=== PATIENT | female | born 1970 | race Caucasian/White ===

== ENCOUNTER 2017-06-10 22:09 | Emergency (ER) | payer BC ==
[2017-06-10 22:41] VITALS: BP 114/80
[2017-06-10] MEDS ORDERED: Hyoscyamine 0.125 MG Tab.SL SL ONE (23:25)
[2017-06-10] MEDS ORDERED: Dicyclomine 10 MG Cap PO ONE (23:26)
[2017-06-10] MEDS ORDERED: Aluminum Hydroxide/Magnesium Hydroxide/Simethicone Susp 30 ML Cup PO ONE (23:26)
--- NOTE | 2017-06-10 23:35 | EDM.PDOC ---
ED HPI GENERAL MEDICAL PROBLEM - General Chief Complaint: Abdominal Pain Stated Complaint: ABDOMINAL PAIN Time Seen by Provider: 06/10/17 23:18 Source of Information: Reports: Patient, Family (spouse) History Limitations: Reports: No Limitations - History of Present Illness INITIAL COMMENTS - FREE TEXT/NARRATIVE: 46-year-old female presents the ED with diffuse epigastric pressure discomfort radiates up into her lower chest. Does not really radiate through to her back. Perhaps a little bit under each costal margin. She does get relief with burping belching and bowel movement. Is to chronic constipation and uses Linzness daily as well as MiraLAX every other day to keep her bowels regular. She's had diarrhea tonight which is helping relieve some of the abdominal discomfort. She usually uses sucralfate for relief but it did not help today. She did have pizza which she knows is not good for her with celiac disease. It seemed to set things off within 2 hours of eating it. She's been struggling with pain about 2 hours after eating the pizza and no position is comfortable. Onset: Today Onset Date: 06/10/17 Onset Time: 18:00 Duration: Hour(s): Location: Reports: Abdomen (Peter the stomach radiating slightly up into her lower chest.) Quality: Reports: Ache, Pressure Severity: Moderate Improves with: Reports: Other (Mild improvement with burping belching and with bowel movement.) Worsens with: Reports: Other Context: Denies: Activity (Lying down.), Exercise, Lifting, Sick Contact, Trauma , Other Associated Symptoms: Denies: No Other Symptoms, Confusion, Chest Pain, Cough, cough w sputum, Diaphoresis, Fever/Chills, Headaches, Loss of Appetite, Malaise , Nausea/Vomiting, Rash, Seizure, Shortness of Breath, Syncope, Weakness Treatments PIN STICKER: Reports: Other (see below) (She has taken some sucralfate with no relief.) Upper Abdomen Pain Score (Numeric/FACES): 10 - Related Data Allergies Allergy/AdvReac Type Severity Reaction Status Date / Time levofloxacin [From Levaquin] Allergy Joint Pain Verified 02/05/16 11:05 Penicillins Allergy Rash Verified 02/05/16 11:05 Home Meds: Home Meds Albuterol [Ventolin HFA] 2 puff INH BID PRN 10/25/13 [History] Metoprolol Tartrate 50 mg PO BEDTIME 10/25/13 [History] Omeprazole [Prilosec] 40 mg PO BID 10/25/13 [History] Aspirin [Ecotrin] 81 mg PO BEDTIME 04/24/14 [History] Desog-E.Estradiol/E.Estradiol [Desogestr-Eth Estrad Eth Estra] 1 tab PO DAILY [History] Metoclopramide [Reglan] 10 mg PO Q6H PRN #20 tablet 02/07/16 [Rx] Linaclotide [Linzess] 290 mg PO DAILY 02/13/16 [History] Polyethylene Glycol 3350 [Miralax] 17 gm PO QID PRN #60 powd.pack 02/13/16 [Rx] Sucralfate [Carafate] 1 gram PO ASDIRECTED 02/13/16 [History] Past Medical History HEENT History: Reports: Allergic Rhinitis Cardiovascular History: Reports: Other (See Below) Other Cardiovascular History: mitral valve regurgitation- see pelt shearer every 6 months Respiratory History: Reports: Asthma Gastrointestinal History: Reports: Celiac Disease, Chronic Constipation, GERD Neurological History: Reports: Migraines Psychiatric History: Reports: Panic Attack - Past Surgical History HEENT Surgical History: Reports: Other (See Below) GI Surgical History: Reports: Colonoscopy, EGD, Esophageal Dilatation Social & Family History - Family History Family Medical History: Noncontributory - Tobacco Use Smoking Status *Q: Never Smoker Years of Tobacco use: 10 Used Tobacco, but Quit: Yes Month Tobacco Last Used: years ago Second Hand Smoke Exposure: No - Caffeine Use Caffeine Use: Reports: Coffee, Soda, Tea Other Caffeine Use: occasional coffee - Alcohol Use Days Per Week of Alcohol Use: 0 Number of Drinks Per Day: 0 Total Drinks Per Week: 0 - Recreational Drug Use Recreational Drug Use: No Drug Use in Last 12 Months: No - Living Situation & Occupation Living situation: Reports: , with Family ED ROS GENERAL - Review of Systems Review Of Systems: See Below Constitutional: Reports: No Symptoms HEENT: Reports: No Symptoms Respiratory: Reports: No Symptoms Cardiovascular: Reports: No Symptoms Endocrine: Reports: No Symptoms GI/Abdominal: Reports: Abdominal Pain (See history of present illness), Constipation, Other (Chronic constipation issues. Confirm celiac disease problems.) : Reports: No Symptoms Musculoskeletal: Reports: No Symptoms Skin: Reports: No Symptoms Neurological: Reports: No Symptoms Psychiatric: Reports: No Symptoms Hematologic/Lymphatic: Reports: No Symptoms Immunologic: Reports: No Symptoms ED EXAM, GI/ABD - Physical Exam Exam: See Below Exam Limited By: No Limitations General Appearance: Alert, Mild Distress (Appears to be uncomfortable.) Eyes: Bilateral: Normal Appearance Throat/Mouth: Normal Inspection, Normal Lips, Normal Teeth Head: Atraumatic, Normocephalic Neck: Normal Inspection, Supple, Non-Tender, Full Range of Motion. No: Lymphadenopathy (L), Lymphadenopathy (R) Respiratory/Chest: Lungs Clear, Normal Breath Sounds, Chest Non-Tender ( Tachypnea at 20/m.), Respiratory Distress Cardiovascular: Normal Peripheral Pulses, Regular Rate, Rhythm, No Edema, No Gallop, No Murmur, No Rub GI/Abdominal Exam: Soft, Tender (Tenderness only in the epigastrium. Again I'm not able to elicit a positive Garner sign.), Abnormal Bowel Sounds (Hyperactive high-pitched bile sounds with fluid traversing bowel.) Back Exam: Normal Inspection, Full Range of Motion. No: CVA Tenderness (L), CVA Tenderness (R) Extremities: Normal Inspection, Normal Range of Motion, Non-Tender, No Pedal Edema Neurological: Alert, Oriented, CN II-XII Intact, Normal Cognition, Normal Gait Psychiatric: Normal Affect, Normal Mood Skin Exam: Warm, Dry, Intact, Normal Color, No Rash Course - Vital Signs Last Recorded V/S: Last Vital Signs Temp 36.4 C 06/10/17 22:38 Pulse 82 06/10/17 22:38 Resp 20 06/10/17 22:38 BP 114/80 06/10/17 22:38 Pulse Ox 98 06/10/17 22:38 - Orders/Labs/Meds Orders: Active Orders 24 hr Category Date Time Status Abdomen 1V Flat [CR] Stat Exams 06/10/17 23:27 Taken Labs: Laboratory Tests 06/10/17 Range/Units 22:50 Urine Color Yellow (Yellow) Urine Appearance Clear (Clear) Urine pH 6.5 (5.0-8.0) Ur Specific [place] 1.020 (1.005-1.030) Urine Protein Negative (Negative) Urine Glucose (UA) Negative (Negative) Urine Ketones Negative (Negative) Urine Occult Blood 1+ H (Negative) Urine Nitrite Negative (Negative) Urine Bilirubin Negative (Negative) Urine Urobilinogen 0.2 (0.2-1.0) Ur Leukocyte Esterase 1+ H (Negative) Urine RBC 5-10 H (0-5) /hpf Urine WBC 5-10 H (0-5) /hpf Ur Epithelial Cells 10-20 H (0-5) /hpf Urine Bacteria Few (FEW) /hpf Urine Mucus Not seen (FEW) /hpf Meds: Medications Discontinued Medications Generic Name Dose Route Start Last Admin Trade Name Elsa PRN Reason Stop Dose Admin Al Hydroxide/Mg Hydroxide 30 ml 06/10/17 23:26 06/10/17 23:42 Mag-Al Plus PO 06/10/17 23:27 30 ml ONETIME ONE Administration Dicyclomine HCl 20 mg 06/10/17 23:26 06/10/17 23:41 Bentyl PO 06/10/17 23:27 20 mg ONETIME ONE Administration Hydromorphone HCl 1 mg 06/11/17 00:05 Dilaudid IM 06/11/17 00:06 ONETIME ONE Hyoscyamine 0.125 mg 06/10/17 23:25 06/10/17 23:43 Hyomax-Sl SL 06/10/17 23:26 0.125 mg ONETIME ONE Administration Promethazine HCl 12.5 mg 06/11/17 00:05 Phenergan IM 06/11/17 00:06 ONETIME ONE - Radiology Interpretation Free Text/Narrative:: 46-year-old female presents the ED with diffuse epigastric pains with slight radiation into the lower retrosternal chest. Occasionally into her mid back. Occasionally along both costal margins. It is usually relieved by burping belching and bowel movement. Patient has a chronic constipation issue and is confirmed to be celiac disease positive. She had pizza earlier today and she believes this set things off about 2 hours later. She states usually sucralfate helps and she took this at home without any relief. He states it's constant uncomfortable feeling in the pit of her stomach. She's had one loose prominence and skated into the ED and this has relieved some of the discomfort. Clinically there is no evidence of heart related illness. She has high-pitched bowel sounds with high fluids traversing the bowel in the upper abdomen. Pain is localized to the epigastrium. I will have one view of the abdomen done. We'll give her Maalox 30 mils by mouth with Levsin 0.125 mg sublingual and Bentyl 20 mg by mouth to see if we can alleviate discomfort. My suspicion would be more hiatal hernia discomfort but she described a strong burning pain. This could mean that she has inflammation of her lower esophagus. She does not take ascitic fluid such as tomato juice or orange juice because it makes it worse. Pizza sauce itself could've irritated the lower food pipe. Patient declined a GI cocktail as she feels the numbness that it causes in her throat makes her panicky. Of note it has worked well in the past to relieve her pain. - Re-Assessments/Exams Free Text/Narrative Re-Assessment/Exam: 06/11/17 00:06 KUB completed. It reveals a large amount of gas throughout the entire colon without any signs of stool. Expresses that perhaps 20% reduction in pain and discomfort but she believes it's more from passing flatus than any medications that we have given. I think she does clinically have a hiatal hernia that is causing problems but it could be intestinal colic causing the burning discomfort as well. I'm going to give her an IM injection of Dilaudid 1 mg with Phenergan 12.5 mg IM to ensure that she gets a good night's rest and sleep. I anticipate this will relieve the pain completely. It will also allow her to pass the air out of recorded during sleep. Departure - Departure Time of Disposition: 00:16 Disposition: Home, Self-Care 01 Condition: Fair Clinical Impression: Epigastric abdominal pain, Celiac disease/sprue - Discharge Information Instructions: Abdominal Pain, Adult, [id number], Celiac Disease Referrals: Uzma Gama PA-C [Primary Care Provider] - Forms: ED Department Discharge Additional Instructions: Evaluation the emergency room tonight in regards to persistent epigastric lower retrosternal chest pressure discomfort since eating pizza earlier today. Pressure and burning discomfort simply will not wanda with usual treatments at home. Similarly treatments here with Maalox Levsin under the tongue and Bentyl orally did not really relieve the discomfort. An x-ray of the abdomen shows a large amount of air throughout the entire colon without any stool obstruction. Do not identify for sure a hiatal hernia on x-ray of the abdomen. History and physical examination is strongly suggestive of hiatal hernia. You're therefore given an intramuscular injection of Dilaudid and Phenergan to relieve pain and nausea. This will divide sedation and pain relief overnight. If not completely better in 8-12 hours return to the ED. - My Orders Last 24 Hours: My Active Orders 06/10/17 23:27 Abdomen 1V Flat [CR] Stat - Assessment/Plan Last 24 Hours: My Active Orders 06/10/17 23:27 Abdomen 1V Flat [CR] Stat
[2017-06-11] MEDS ORDERED: HYDROmorphone 1 MG/ML Syringe IM ONE (00:05)
[2017-06-11] MEDS ORDERED: Promethazine 25 MG/ML SDV IM ONE (00:05)
--- NOTE | 2017-06-11 16:55 | CR ---
Abdomen: Supine view of the abdomen was obtained. Comparison: Prior abdominal x-ray of 02/07/16. Gas is noted throughout a nondilated colon. This is felt to be incidental. No abnormal calcifications or soft tissue abnormality is seen. Bony structures are unremarkable. Impression: 1. Incidental finding as noted above. Diagnostic code #2
== END 2017-06-11 00:20 | disposition home or self-care (01) ==
LOC: JD.ED 22:09
DX: K90.0 Celiac disease (principal); K21.9 Gastro-esophageal reflux disease without esophagitis; Z88.0 Allergy status to penicillin; Z88.1 Allergy status to other antibiotic agents; Z79.82 Long term (current) use of aspirin; Z87.891 Personal history of nicotine dependence
CPT/HCPCS: 74018; 81001; 96372; 99284; A9270; J1170; J2550; 99283

== ENCOUNTER 2017-06-18 09:18 | Emergency (ER) | payer BC ==
[2017-06-18 09:35] VITALS: BP 133/60
[2017-06-18] MEDS ORDERED: Sodium Chloride 0.9% 10 ML Syringe FLUSH PRN ×2 (09:58→16:15)
[2017-06-18] MEDS ORDERED: Ketorolac 30 MG/ML SDV IVPUSH SCH (10:00)
[2017-06-18] MEDS ORDERED: HYDROmorphone 0.5 MG/0.5 ML Syringe IVPUSH ONE ×2 (10:00→11:44)
[2017-06-18] MEDS ORDERED: Sodium Chloride 0.9% 1,000 ML IV SCH ×2 (10:00→12:30)
--- NOTE | 2017-06-18 10:04 | EDM.PDOC ---
ED HPI GENERAL MEDICAL PROBLEM - General Chief Complaint: Abdominal Pain Stated Complaint: BACK AND ABDOMINAL PAIN Time Seen by Provider: 06/18/17 09:58 Source of Information: Reports: Patient, RN Notes Reviewed - History of Present Illness INITIAL COMMENTS - FREE TEXT/NARRATIVE: 46 show female has been having difficulty with abdominal pain for more than a week. She did have an ultrasound of her gallbladder a few days ago and was found to have sludge. She is scheduled for a HIDA scan in about 2 days. She was feeling a little better this morning, did eat a small bolus cereal and then also had some chips and dip that she was preparing for [employer] this afternoon. After eating that she became very sick with nausea, abdominal pain cramps. So has been having some diarrhea. No fever. Chest pain or difficulty breathing. Does have history of celiac disease but states this feels much different. The pain is right upper quadrant with radiation to her back. Epigastric Pain Score (Numeric/FACES): 10 Back Pain Score (Numeric/FACES): 10 - Related Data Allergies Allergy/AdvReac Type Severity Reaction Status Date / Time levofloxacin [From Levaquin] Allergy Joint Pain Verified 06/18/17 09:35 Penicillins Allergy Rash Verified 06/18/17 09:35 Home Meds: Home Meds Albuterol [Ventolin HFA] 2 puff INH BID PRN 10/25/13 [History] Metoprolol Tartrate 50 mg PO BEDTIME 10/25/13 [History] Omeprazole [Prilosec] 40 mg PO BID 10/25/13 [History] Aspirin [Ecotrin] 81 mg PO BEDTIME 04/24/14 [History] Desog-E.Estradiol/E.Estradiol [Desogestr-Eth Estrad Eth Estra] 1 tab PO DAILY [History] Linaclotide [Linzess] 290 mg PO DAILY 02/13/16 [History] Polyethylene Glycol 3350 [Miralax] 17 gm PO QID PRN #60 powd.pack 02/13/16 [Rx] Sucralfate [Carafate] 1 gram PO ASDIRECTED 02/13/16 [History] Past Medical History HEENT History: Reports: Allergic Rhinitis Cardiovascular History: Reports: Other (See Below) Other Cardiovascular History: mitral valve regurgitation- see striker off every 6 months Respiratory History: Reports: Asthma, Bronchitis, Recurrent Gastrointestinal History: Reports: Celiac Disease, Chronic Constipation, GERD 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 Hematologic History: Reports: Anemia, Iron Deficiency, Other (See Below) Other Hematologic History: iron transfusions. 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 GI Surgical History: Reports: Colonoscopy, EGD, Esophageal Dilatation Social & Family History - Family History Family Medical History: Noncontributory - Tobacco Use Smoking Status *Q: Never Smoker Years of Tobacco use: 10 Used Tobacco, but Quit: Yes Month Tobacco Last Used: years ago Second Hand Smoke Exposure: No - Caffeine Use Caffeine Use: Reports: Tea Other Caffeine Use: occasional coffee - Alcohol Use Days Per Week of Alcohol Use: 0 Number of Drinks Per Day: 0 Total Drinks Per Week: 0 - Recreational Drug Use Recreational Drug Use: No Drug Use in Last 12 Months: No - Living Situation & Occupation Living situation: Reports: , with Family ED ROS GENERAL - Review of Systems Review Of Systems: See Below Constitutional: Reports: Chills. Denies: Fever, Diaphoresis HEENT: Denies: Throat Pain Respiratory: Denies: Shortness of Breath, Pleuritic Chest Pain, Cough Cardiovascular: Denies: Chest Pain GI/Abdominal: Reports: Abdominal Pain, Diarrhea, Nausea (Right upper quadrant with radiation to her back). Denies: Vomiting : Reports: No Symptoms Musculoskeletal: Reports: Back Pain Skin: Reports: No Symptoms Neurological: Reports: No Symptoms ED EXAM, GI/ABD - Physical Exam Exam: See Below General Appearance: Alert, Moderate Distress Eyes: Bilateral: Normal Appearance Throat/Mouth: Normal Inspection, Normal Oropharynx Head: No: Facial Swelling Neck: Supple, Full Range of Motion Respiratory/Chest: No Respiratory Distress, Lungs Clear, Normal Breath Sounds Cardiovascular: Regular Rate, Rhythm GI/Abdominal Exam: Soft, Tender (Moderate tenderness upper mid abdomen and right upper quadrant), Other (Lower abdomen nontender). No: Guarding, Rebound Back Exam: No: CVA Tenderness (L), CVA Tenderness (R) Extremities: Normal Inspection, Normal Range of Motion. No: Pedal Edema, Leg Pain Neurological: Alert, Oriented, No Motor/Sensory Deficits Course - Vital Signs Last Recorded V/S: Last Vital Signs Temp 97.6 F 06/18/17 09:30 Pulse 86 06/18/17 09:30 Resp 18 06/18/17 09:30 BP 133/60 06/18/17 09:30 Pulse Ox 99 06/18/17 09:30 - Orders/Labs/Meds Orders: Active Orders 24 hr Category Date Time Status Peripheral IV Care [RC] . DIRECTED Care 06/18/17 09:59 Active Abdomen Ltd [US] Stat Exams 06/18/17 12:12 Taken Abdomen Pelvis w Cont [CT] Stat Exams 06/18/17 15:53 Taken Ketorolac [Toradol] Med 06/18/17 10:00 Active 15 mg IVPUSH ONETIME Sodium Chloride 0.9% [Normal Saline] 1,000 ml Med 06/18/17 12:30 Active IV ASDIRECTED Sodium Chloride 0.9% [Normal Saline] 1,000 ml Med 06/18/17 10:00 Active IV ONETIME Sodium Chloride 0.9% [Saline Flush] Med 06/18/17 09:58 Active 10 ml FLUSH ASDIRECTED PRN Sodium Chloride 0.9% [Saline Flush] Med 06/18/17 16:15 Active 10 ml FLUSH ONETIME PRN Peripheral IV Insertion Adult [OM.PC] Stat Oth 06/18/17 09:58 Ordered Medication Orders Sodium Chloride (Normal Saline) 1,000 mls @ 999 mls/hr IV ONETIME ALEYDA Last Admin: 06/18/17 10:10 Dose: 999 mls/hr Sodium Chloride (Normal Saline) 1,000 mls @ 150 mls/hr IV ASDIRECTED ALEYDA Last Admin: 06/18/17 12:28 Dose: 150 mls/hr Ketorolac Tromethamine (Toradol) 15 mg IVPUSH ONETIME ALEYDA Last Admin: 06/18/17 10:11 Dose: 15 mg Sodium Chloride (Saline Flush) 10 ml FLUSH ASDIRECTED PRN PRN Reason: Keep Vein Open Last Admin: 06/18/17 10:25 Dose: 10 ml Sodium Chloride (Saline Flush) 10 ml FLUSH ONETIME PRN PRN Reason: IV FLUSH Last Admin: 06/18/17 16:29 Dose: 10 ml Labs: Laboratory Tests 06/18/17 06/18/17 Range/Units 09:45 09:45 WBC 6.59 (3.98-10.04) K/mm3 RBC 5.22 (3.98-5.22) M/mm3 Hgb 15.4 (11.2-15.7) gm/L Hct 46.4 H (34.1-44.9) % MCV 88.9 (79.4-94.8) fl MCH 29.5 (25.6-32.2) pg MCHC 33.2 (32.2-35.5) g/dl RDW Std Deviation 42.2 (36.4-46.3) fL Plt Count 233 (182-369) K/mm3 MPV 11.7 (9.4-12.3) fl Neut % (Auto) 64.6 (34.0-71.1) % Lymph % (Auto) 22.9 (19.3-51.7) % [place] % (Auto) 9.1 (4.7-12.5) % Eos % (Auto) 2.7 (0.7-5.8) Baso % (Auto) 0.5 (0.1-1.2) % Neut # (Auto) 4.26 (1.56-6.13) K/mm3 Lymph # (Auto) 1.51 (1.18-3.74) K/mm3 [place] # (Auto) 0.60 H (0.24-0.36) K/mm3 Eos # (Auto) 0.18 (0.04-0.36) K/mm3 Baso # (Auto) 0.03 (0.01-0.08) K/mm3 Sodium 136 (136-145) mEq/L Potassium 3.6 (3.5-5.1) mEq/L Chloride 103 (98-107) mEq/L Carbon Dioxide 23 (21-32) mEq/L Anion Gap 13.6 (5-15) BUN 8 (7-18) mg/dL Creatinine 0.8 (0.55-1.02) mg/dL Est Cr Clr Drug Dosing 72.69 mL/min Estimated GFR (MDRD) > 60 (>60) mL/min BUN/Creatinine Ratio 10.0 L (14-18) Glucose 96 (74-106) mg/dL Calcium 8.8 (8.5-10.1) mg/dL Total Bilirubin 0.5 (0.2-1.0) mg/dL GGT 10 (5-55) U/L AST 29 (15-37) U/L ALT 64 H (14-59) U/L Alkaline Phosphatase 77 (46-116) U/L Total Protein 7.1 (6.4-8.2) g/dl Albumin 3.4 (3.4-5.0) g/dl Globulin 3.7 gm/dL Albumin/Globulin Ratio 0.9 L (1-2) Lipase 792 H (73-393) U/L Meds: Medications Generic Name Dose Route Start Last Admin Trade Name Cliftonq PRN Reason Stop Dose Admin Sodium Chloride 1,000 mls @ 999 mls/hr 06/18/17 10:00 06/18/17 10:10 Normal Saline IV 999 mls/hr ONETIME ALEYDA Administration Sodium Chloride 1,000 mls @ 150 mls/hr 06/18/17 12:30 06/18/17 12:28 Normal Saline IV 150 mls/hr ASDIRECTED ALEYDA Administration Ketorolac Tromethamine 15 mg 06/18/17 10:00 06/18/17 10:11 Toradol IVPUSH 15 mg ONETIME ALEYDA Administration Sodium Chloride 10 ml 06/18/17 09:58 06/18/17 10:25 Saline Flush FLUSH 10 ml ASDIRECTED PRN Administration Keep Vein Open Sodium Chloride 10 ml 06/18/17 16:15 06/18/17 16:29 Saline Flush FLUSH 10 ml ONETIME PRN Administration IV FLUSH Discontinued Medications Generic Name Dose Route Start Last Admin Trade Name Freq PRN Reason Stop Dose Admin Diatrizoate Meglum/Diatrizoate Sod 120 ml 06/18/17 16:15 06/18/17 16:29 Gastrografin 37% PO 06/18/17 16:16 90 ml ONETIME ONE Administration Hydromorphone HCl 0.25 mg 06/18/17 10:00 06/18/17 10:10 Dilaudid IVPUSH 06/18/17 10:01 0.25 mg ONETIME ONE Administration Hydromorphone HCl 0.25 mg 06/18/17 11:44 02/04/18 12:01 Dilaudid IVPUSH 06/18/17 11:45 0.25 mg ONETIME ONE Administration Iopamidol 150 ml 06/18/17 16:15 06/18/17 16:29 Isovue-300 (61%) IVPUSH 06/18/17 16:16 150 ml ONETIME ONE Administration Lorazepam 0.25 mg 06/18/17 11:09 06/18/17 11:22 Ativan IVPUSH 06/18/17 11:10 0.25 mg ONETIME ONE Administration Metoclopramide HCl 5 mg 06/18/17 12:12 06/18/17 12:27 Reglan IVPUSH 06/18/17 12:13 5 mg ONETIME ONE Administration - Re-Assessments/Exams Free Text/Narrative Re-Assessment/Exam: 06/18/17 13:43 Lipase did come back moderately elevated in the 780 range. Her forward going to have to repeat ultrasound of gallbladder see if there is any biliary duct dilatation. She denies alcohol intake that would not be a cause of what may inspector returned materials to be pancreatitis. Also will need to do CT of abdomen and pelvis to better look at that area. We'll get the ultrasound first and then proceed to the abdominal CT. 06/18/17 14:13. Ultrasound does show 1 probable gallstone, bile ducts 3 mm, no stones no dilatation. No mention of wall thickening or other acute abnormality. 06/18/17 17:35. Patient is resting fairly comfortably at this time, especially compared to arrival when she was in quite severe distress. [place] CT does not show acute abnormality. Reviewing her labs once again white blood count was normal, bilirubin normal GGT normal. She is scheduled for HIDA scan Monday, 2 days from now. Discharge instructions as documented. Departure - Departure Time of Disposition: 17:57 Disposition: Home, Self-Care 01 Condition: Fair Clinical Impression: Abdominal pain Qualifiers: Abdominal location: generalized Qualified Code(s): R10.84 - Generalized abdominal pain - Discharge Information Referrals: Uzam Gama PA-C [Primary Care Provider] - Forms: ED Department Discharge Additional Instructions: Continue with clear liquids and very bland low-fat diet as tolerated, your gallbladder works to digest fat, avoid all fatty type and fried foods, that should help you avoid severe difficulty if this is your gallbladder giving you trouble at this time. You may safely take Tylenol for mild to moderate discomfort or one half tablet hydrocodone along with a 500 mg Tylenol every 6 hours if needed for more severe pain. Zofran 4 mg ODT if needed for nausea or vomiting. HIDA scan Monday as planned. Follow-up with Uzma at clinic tomorrow or Monday, call for appointment. Return to ED as needed if symptoms worsening in any way. - My Orders Last 24 Hours: My Active Orders 06/18/17 09:58 Sodium Chloride 0.9% [Saline Flush] 10 ml FLUSH ASDIRECTED PRN Peripheral IV Insertion Adult [OM.PC] Stat 06/18/17 09:59 Peripheral IV Care [RC] . DIRECTED 06/18/17 10:00 Ketorolac [Toradol] 15 mg IVPUSH ONETIME Sodium Chloride 0.9% [Normal Saline] 1,000 ml IV ONETIME 06/18/17 12:12 Abdomen Ltd [US] Stat 06/18/17 12:30 Sodium Chloride 0.9% [Normal Saline] 1,000 ml IV ASDIRECTED 06/18/17 15:53 Abdomen Pelvis w Cont [CT] Stat 06/18/17 16:15 Sodium Chloride 0.9% [Saline Flush] 10 ml FLUSH ONETIME PRN - Assessment/Plan Last 24 Hours: My Active Orders 06/18/17 09:58 Sodium Chloride 0.9% [Saline Flush] 10 ml FLUSH ASDIRECTED PRN Peripheral IV Insertion Adult [OM.PC] Stat 06/18/17 09:59 Peripheral IV Care [RC] . DIRECTED 06/18/17 10:00 Ketorolac [Toradol] 15 mg IVPUSH ONETIME Sodium Chloride 0.9% [Normal Saline] 1,000 ml IV ONETIME 06/18/17 12:12 Abdomen Ltd [US] Stat 06/18/17 12:30 Sodium Chloride 0.9% [Normal Saline] 1,000 ml IV ASDIRECTED 06/18/17 15:53 Abdomen Pelvis w Cont [CT] Stat 06/18/17 16:15 Sodium Chloride 0.9% [Saline Flush] 10 ml FLUSH ONETIME PRN
[2017-06-18] MEDS ORDERED: LORazepam 2 MG/ML MDV IVPUSH ONE (11:09)
[2017-06-18] MEDS ORDERED: Metoclopramide 10 MG/2 ML SDV IVPUSH ONE (12:12)
[2017-06-18] MEDS ORDERED: Diatrizoate Meglumine/Diatrizoate Sodium 37% 120 ML Bottle PO ONE (16:15)
[2017-06-18] MEDS ORDERED: Iopamidol 612 MG/ML 150 ML Bottle IVPUSH ONE (16:15)
--- NOTE | 2017-06-19 07:42 | CT ---
CT abdomen and pelvis Technique: Multiple axial sections were obtained from above the dome of the diaphragm inferiorly through the pubic symphysis. Intravenous and oral contrast was utilized. Delayed images were also obtained through the bladder. Comparison: Prior limited abdominal ultrasound of 06/15/17, no previous abdominal CT exam. Findings: Visualized lung bases show nothing acute. Liver is slightly generous in size but shows no focal abnormality. Spleen appears within normal limits. Adrenal glands show no nodule. Pancreas is within normal limits. Kidneys show symmetric contrast enhancement without hydronephrosis or mass. Aorta shows no aneurysmal dilatation. No retroperitoneal adenopathy or mesenteric abnormalities are seen. Appendix is seen which is normal in size. No pelvic mass or adenopathy is seen. No free fluid is seen. Delayed images show contrast within the distal ureters and within the bladder. Bone window settings were reviewed which appear within normal limits for the patient's age. Gallbladder contains no calcified gallstones. Impression: 1. Incidental findings. Nothing acute is appreciated on CT study of the abdomen and pelvis. Diagnostic code #2 Agree with preliminary report issued by [facility] ([facility] preliminary report dictated on 06/18/17, 6:06 PM Central Time)
--- NOTE | 2017-06-19 07:42 | US ---
Limited abdominal ultrasound: Multiple real-time images of the upper right abdomen were obtained. Comparison: Prior right upper quadrant abdominal ultrasound of 06/15/17. Liver shows no focal parenchymal abnormality. Right kidney shows no hydronephrosis or mass and has a length of about 11.3 cm. Several intraluminal abnormalities are identified within the gallbladder. These are not identified with certainty on prior ultrasound which may be hidden by sludge that was seen on previous study. Current findings may also represent small sludge balls as no significant shadowing is seen. No gallbladder wall thickening or biliary duct dilatation is seen. Pancreas appears within normal limits. Inferior vena cava is patent. Portal vein shows normal hepatopedal flow. Impression: 1. Several small intraluminal abnormalities within the gallbladder changed in appearance from recent previous ultrasound. Uncertain if these represent small gallstones hidden by sludge on prior study or if current exam represents small sludge balls. 2. No gallbladder wall thickening or biliary duct dilatation is seen. Other portions of the right upper quadrant abdominal ultrasound are unremarkable. Diagnostic code #3 Agree with preliminary report issued by [facility] ([facility] preliminary report dictated on 06/18/17, 2:35 PM Central Time)
== END 2017-06-18 18:15 | disposition home or self-care (01) ==
LOC: JD.ED 09:18
DX: R10.84 Generalized abdominal pain (principal); K21.9 Gastro-esophageal reflux disease without esophagitis; Z88.0 Allergy status to penicillin; Z88.1 Allergy status to other antibiotic agents
CPT/HCPCS: 36415; 74177; 76705; 80053; 82977; 83690; 85025; 96361; 96374; 96375; 96376; 99284; J1170; J1885; J2060; J2765; J7040; J7050; Q9963; Q9967

== ENCOUNTER → 2017-06-20 | Day surgery (SDC) | payer BC ==
[~2017-06-20] MED LIST: Acetaminophen/HYDROcodone 325-5 MG Tab PO ONE; Acetaminophen/HYDROcodone 325-5 MG Tab PO PRN; Albuterol 0.083% 2.5 MG/3 ML Neb Soln NEB PRN; Bupivacaine 0.5% 30 ML SDV ONE; Dexamethasone 4 MG/ML 5 ML MDV ONE; Ketorolac 30 MG/ML SDV ONE; Lactated Ringers 1,000 ML IV SCH; Lactated Ringers 1,000 ML ONE; Lidocaine 1% 4 ML ONE; Lidocaine 1%/Sod Bicarbonate in NS 8.4% 1 ML Syringe IV PRN; Meperidine PF 50 MG/ML Syringe IVPUSH PRN; Midazolam 1 MG/ML 2 ML SDV IVPUSH ONE; Midazolam 1 MG/ML 2 ML SDV ONE; Neostigmine Methylsulfate 1 MG/ML 5 ML Syringe ONE; Ondansetron 4 MG/2 ML SDV IVPUSH PRN; Ondansetron 4 MG/2 ML SDV ONE; Propofol 200 MG/20 ML SDV ONE; Rocuronium 50 MG/5 ML Vial ONE; Sodium Chloride 0.9% 10 ML Syringe FLUSH PRN; ceFAZolin 1 GM Vial ONE; fentaNYL 100 MCG/2 ML SDV IVPUSH PRN; fentaNYL 250 MCG/5 ML SDV ONE
--- NOTE | 2017-06-20 10:23 | PCM.PREANE ---
<Mandi Roger - Last Filed: 06/20/17 10:16> Preanesthetic Assessment - Anesthesia/Transfusion/Family Hx Anesthesia History: Prior Anesthesia Without Reaction Family History of Anesthesia Reaction: No Transfusion History: No Prior Transfusion(s) Intubation History: Unknown - Review of Systems Pulmonary: No Symptoms (COPD/ asthma/ Former smoker, quit:) Cardiovascular: No Symptoms (Ascending aortic aneurysm/Aortic stenosis(mild- moderate), Aortic regurgitation(Mild-moderate0) Gastrointestinal: No Symptoms (GERD), Constipation (chronic) Neurological: Headache (History of migraines) Other: Reports: Sinus Problem (Allergic rhinitis), Anxiety - Physical Assessment NPO Status Date: 06/19/17 Height: 5 ft 2 in ASA Class: 3 Mental Status: Alert & Oriented x3 - Lab Values: All lab values noted and reviewed and within acceptable ranges to proceed with scheduled procedure. - Imaging/EKG Impressions: Holter Monitor Reading: unremarkable Echocardiogram:01/2017 EF: 60-65 EK06/20/2017: - Allergies Allergies/Adverse Reactions: Allergies Allergy/AdvReac Type Severity Reaction Status Date / Time Penicillins Allergy Rash Verified 06/19/17 16:05 levofloxacin [From Levaquin] AdvReac Joint Pain Verified 06/20/17 10:34 - Anesthesia Plan Pre-Op Medication Ordered: Beta Lisa Beta Lisa: Metoprolol Med Last Dose Date: 06/20/17 - Acknowledgements Anesthesia Type Planned: General Anesthesia Pt an Appropriate Candidate for the Planned Anesthesia: Yes Alternatives and Risks of Anesthesia Discussed w Pt/Guardian: Yes Pt/Guardian Understands and Agrees with Anesthesia Plan: Yes PreAnesthesia Questionnaire HEENT History: Reports: Allergic Rhinitis, Impaired Vision, Other (See Below) Other HEENT History: wears contacts Cardiovascular History: Reports: Other (See Below) Other Cardiovascular History: aortic stenosis/enlargement/regurgitation, AAA, bicuspid aortic valve Respiratory History: Reports: Asthma, Bronchitis, Recurrent, Other (See Below) Other Respiratory History: undiagnosed sleep apnea Gastrointestinal History: Reports: Celiac Disease, Chronic Constipation, Gastritis, GERD, Other (See Below) Other Gastrointestinal History: bloating, duodenitis, throat and stomach biopsy Genitourinary History: Reports: None 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 Hematologic History: Reports: Anemia, Iron Deficiency, Other (See Below) Other Hematologic History: iron transfusions. 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 Respiratory Surgical History: Reports: None GI Surgical History: Reports: Colonoscopy, EGD, Esophageal Dilatation Female Surgical History: Reports: None Male Surgical History: Reports: None Neurological Surgical History: Reports: None Musculoskeletal Surgical History: Reports: None Oncologic Surgical History: Reports: None Dermatological Surgical History: Reports: None - SUBSTANCE USE Smoking Status *Q: Never Smoker Second Hand Smoke Exposure: No Days Per Week of Alcohol Use: 0 Number of Drinks Per Day: 0 Total Drinks Per Week: 0 Recreational Drug Use History: No - HOME MEDS Home Medications: Home Meds Albuterol [Ventolin HFA] 2 puff INH BID PRN 10/25/13 [History] Metoprolol Tartrate 50 mg PO BEDTIME 10/25/13 [History] Omeprazole [Prilosec] 40 mg PO BID 10/25/13 [History] Aspirin [Ecotrin] 81 mg PO BEDTIME 04/24/14 [History] Linaclotide [Linzess] 290 mg PO DAILY 02/13/16 [History] Desogestrel-Ethinyl Estradiol [Juleber 28 Day Tablet] 1 tab PO DAILY 06/19/17 [ History] Fluticasone/Salmeterol [Advair 100-50] 2 puff INH BID PRN 06/19/17 [History] Loratadine [Claritin] 10 mg PO DAILY PRN 06/19/17 [History] - CURRENT (IN HOUSE) MEDS Current Meds: Current Medications Albuterol (Proventil Neb Soln) 2.5 mg NEB ONETIME PRN PRN Reason: improve ventilation Stop: 06/20/17 18:00 Lactated Ringer's (Ringers, Lactated) 1,000 mls @ 125 mls/hr IV ASDIRECTED ALEYDA Stop: 06/20/17 23:00 Lidocaine/Sodium Bicarbonate (Buffered Lidocaine 1% In Ns 8.4%) 0.25 ml IV ONETIME PRN PRN Reason: Prior to IV Start Stop: 06/20/17 18:00 Sodium Chloride (Saline Flush) 10 ml FLUSH ASDIRECTED PRN PRN Reason: Keep Vein Open Stop: 06/20/17 18:00 Discontinued Medications Bupivacaine HCl (Marcaine 0.5%) Confirm Administered Dose 30 ml .ROUTE .STK-MED ONE Stop: 06/20/17 10:30 Cefazolin Sodium (Ancef) Confirm Administered Dose 2 gm .ROUTE .STK-MED ONE Stop: 06/20/17 10:57 Fentanyl (Sublimaze) Confirm Administered Dose 250 mcg .ROUTE .STK-MED ONE Stop: 06/20/17 10:40 Lidocaine HCl (Xylocaine-Mpf 1%) Confirm Administered Dose 4 mls @ as directed .ROUTE .STK-MED ONE Stop: 06/20/17 10:40 Iopamidol (Isovue-300 (61%)) Confirm Administered Dose 50 ml .ROUTE .STK-MED ONE Stop: 06/20/17 10:30 Midazolam HCl (Versed 1 Mg/Ml) Confirm Administered Dose 2 mg .ROUTE .STK-MED ONE Stop: 06/20/17 10:40 Ondansetron HCl (Zofran) Confirm Administered Dose 4 mg .ROUTE .STK-MED ONE Stop: 06/20/17 10:40 Propofol (Diprivan 20 Ml) Confirm Administered Dose 200 mg .ROUTE .STK-MED ONE Stop: 06/20/17 10:40 Rocuronium [place] (Zemuron) Confirm Administered Dose 50 mg .ROUTE .STK-MED ONE Stop: 06/20/17 10:40 Sodium Chloride (Normal Saline) Confirm Administered Dose 50 ml .ROUTE .STK-MED ONE Stop: 06/20/17 10:31 <Margarette Nguyen - Last Filed: 06/20/17 11:03> Preanesthetic Assessment - Anesthesia/Transfusion/Family Hx Anesthesia History: Prior Anesthesia Without Reaction (crabby when she wakes up) Family History of Anesthesia Reaction: No Transfusion History: No Prior Transfusion(s) - Review of Systems General: No Symptoms Pulmonary: No Symptoms Cardiovascular: No Symptoms Gastrointestinal: No Symptoms, Constipation Neurological: No Symptoms, Other (hypoglycemia) Other: Reports: Sinus Problem, Anxiety - Physical Assessment NPO Status Time: 03:00 (sip water this am) Pulse: 97 O2 Sat by Pulse Oximetry: 96 Respiratory Rate: 16 Blood Pressure: 125/68 Temperature: 97.9 F Weight: 86 kg ASA Class: 2 Mental Status: Alert & Oriented x3 Airway Class: Mallampati = 1 Dentition: Reports: Normal Dentition Thyro-Mental Finger Breadths: 3 Mouth Opening Finger Breadths: 3 ROM/Head Extension: Full Lungs: Clear to Auscultation, Normal Respiratory Effort Cardiovascular: Regular Rate, Regular Rhythm - Imaging/EKG Impressions: EKG today SR 88 probable left atrial enlargeent - Blood Blood Available: No - Anesthesia Plan Pre-Op Medication Ordered: Beta Lisa Beta Lisa: Metoprolol Med Last Dose Date: 06/19/17 Med Last Dose Time: 19:00 - Acknowledgements Anesthesia Type Planned: General Anesthesia Pt an Appropriate Candidate for the Planned Anesthesia: Yes Alternatives and Risks of Anesthesia Discussed w Pt/Guardian: Yes Pt/Guardian Understands and Agrees with Anesthesia Plan: Yes PreAnesthesia Questionnaire HEENT History: Reports: Allergic Rhinitis, Impaired Vision Cardiovascular History: Reports: Other (See Below) Respiratory History: Reports: Asthma, Bronchitis, Recurrent, Other (See Below) Gastrointestinal History: Reports: Celiac Disease, Chronic Constipation, Gastritis, GERD, Other (See Below) Genitourinary History: Reports: None 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: Musculoskeletal History: Reports: None Neurological History: Reports: Migraines Psychiatric History: Reports: Anxiety, Panic Attack Endocrine/Metabolic History: Reports: Other (See Below) Hematologic History: Reports: Anemia, Iron Deficiency, Other (See Below) Immunologic History: Reports: None Oncologic (Cancer) History: Reports: None Dermatologic History: Reports: None - Infectious Disease History Infectious Disease History: Reports: None - Past Surgical History HEENT Surgical History: Reports: Other (See Below) Cardiovascular Surgical History: Reports: Other (See Below) Respiratory Surgical History: Reports: None GI Surgical History: Reports: Colonoscopy, EGD, Esophageal Dilatation Female Surgical History: Reports: None Male Surgical History: Reports: None Neurological Surgical History: Reports: None Musculoskeletal Surgical History: Reports: None Oncologic Surgical History: Reports: None Dermatological Surgical History: Reports: None - SUBSTANCE USE Smoking Status *Q: Former Smoker (in high school) Tobacco Use Within Last Twelve Months: No Second Hand Smoke Exposure: No Recreational Drug Use History: No
[2017-06-20] MEDS: Sodium Chloride 0.9% 50 ML SDV ONE ×2 (11:38→12:00)
[2017-06-20] MEDS: Iopamidol 612 MG/ML 50 ML SDV ONE ×2 (11:38→12:00)
--- NOTE | 2017-06-20 12:35 | PCM.OPNOTE ---
- General Post-Op/Procedure Note Date of Surgery/Procedure: 06/20/17 Operative Procedure(s): lap hemal with ioc Findings: cholesterolosis Pre Op Diagnosis: cholesterolosis and pancreatis Post-Op Diagnosis: Same Anesthesia Technique: MAC Primary Surgeon: Charles Shanks EBL in mLs: 5 Complications: None Condition: Good
--- NOTE | 2017-06-20 12:45 | PCM.POSTAN ---
POST ANESTHESIA ASSESSMENT - MENTAL STATUS Mental Status: Alert, Oriented - VITAL SIGNS Pulse Rate: 94 SaO2: 99 Resp Rate: 12 Blood Pressure: 121/66 Temperature: 98.5 F - RESPIRATORY Respiratory Status: Respiratory Rate WNL, Airway Patent, O2 Saturation Stable, Supplemental Oxygen - CARDIOVASCULAR CV Status: Pulse Rate WNL, Blood Pressure Stable - GASTROINTESTINAL GI Status: No Symptoms - PAIN Pain Score: 0 - POST OP HYDRATION Hydration Status: Adequate & Stable
--- NOTE | 2017-06-20 14:00 | CR ---
Operative cholangiogram: Multiple fluoroscopic spot views were obtained during operative cholangiogram study. Findings: CHD and CBD are opacified showing no filling defects. Contrast is seen within the duodenum. Small portion of the visualized intrahepatic biliary ducts appear within normal limits. Impression: 1. No abnormality is identified on operative cholangiogram study. Diagnostic code #1
[2017-06-20 14:41] VITALS: BP 123/89
--- NOTE | 2017-06-21 05:42 | OR ---
DATE OF OPERATION: 06/20/2017 SURGEON: Charles Shanks MD PREOPERATIVE DIAGNOSIS: Cholesterolosis and pancreatitis. POSTOPERATIVE DIAGNOSIS: Cholesterolosis and pancreatitis. OPERATION PERFORMED: Laparoscopic cholecystectomy and intraoperative cholangiogram. ESTIMATED BLOOD LOSS: 5 mL. FINDINGS: Normal cholangiogram and there is sludge with cholesterolosis in the gallbladder. ANESTHESIA: General. DESCRIPTION OF PROCEDURE: The patient was taken to the operating room, placed in a supine position, connected to monitoring equipment, and given a general anesthetic and intubated. SCDs were placed. Antibiotics were given. The abdomen was then prepped with chlorhexidine, prepped and draped off in a sterile fashion. An incision was made just below the umbilicus and using a 5-mm Optiport, the abdominal cavity was entered. Pneumoperitoneum was established and a 5-mm 0-degree camera was inserted into abdominal cavity, scan showing gallbladder in the right upper quadrant. A 10-mm trocar was placed in the epigastric position, 5-mm trocar was placed in right upper and right lateral position. The fundus of the gallbladder was retracted in a cephalad position. The patient was placed in the reverse Trendelenburg leftward tilt. Gabe pouch was identified and dissected out; along with this Gabe pouch, cystic duct junction, cystic plate, and cystic artery. A clip was placed on the cystic duct and Gabe pouch junction and an incision was made in the cystic duct, cholangiocatheter was inserted, and a cholangiogram was then obtained using contrast material diluted with equal parts of saline, and the C-arm. This demonstrated normal study with right and left hepatic ducts, and free flow of dye into the duodenum. There were no obstructive elements. The cholangiocatheter was removed, and 2 clips were placed in the cystic duct. The cystic duct was cut. Two clips were placed, 1 proximal and 1 distal in the cystic artery. The cystic artery was cut and the gallbladder was then dissected from its attachments to the liver and placed in an Endobag and removed from the abdominal cavity. There was some slight bleeding at the edge of the liver where the fundus resided and this was treated with electrocautery and application of Surgicel, bleeding stopped. The area was then irrigated and this completed the intraabdominal portion of the procedure. The pneumoperitoneum and ports were removed and the skin of each port closed with subdermal 4-0 Dexon suture and anesthetized with 1% Xylocaine. Sterile dressing placed. The patient tolerated the procedure and sent to recovery room in a stable condition. MMODAL /[id number]
--- NOTE | 2017-06-21 06:57 | PCM48HPAN ---
Post Anesthesia Note - EVALUATION WITHIN 48HRS OF ANESTHETIC Vital Signs in Normal Range: Yes Patient Participated in Evaluation: Yes Respiratory Function Stable: Yes Airway Patent: Yes Cardiovascular Function Stable: Yes Hydration Status Stable: Yes Pain Control Satisfactory: Yes Nausea and Vomiting Control Satisfactory: Yes Mental Status Recovered: Yes (Visited with patient in post op.)
== END | disposition home or self-care (01) ==
LOC: JD.SDS 10:26
PROVIDERS: ATTEND Surgery
DX: K82.4 Cholesterolosis of gallbladder (principal); K85.90 Acute pancreatitis without necrosis or infection, unspecified; F41.9 Anxiety disorder, unspecified; I71.2 Thoracic aortic aneurysm, without rupture; I35.1 Nonrheumatic aortic (valve) insufficiency; I35.0 Nonrheumatic aortic (valve) stenosis; K21.9 Gastro-esophageal reflux disease without esophagitis; J44.9 Chronic obstructive pulmonary disease, unspecified; K90.0 Celiac disease; G43.909 Migraine, unspecified, not intractable, without status migrainosus; F41.0 Panic disorder [episodic paroxysmal anxiety]; Z87.891 Personal history of nicotine dependence; Z80.49 Family history of malignant neoplasm of other genital organs; Z79.82 Long term (current) use of aspirin; Z79.3 Long term (current) use of hormonal contraceptives; Z79.51 Long term (current) use of inhaled steroids; Z79.899 Other long term (current) drug therapy; Z88.0 Allergy status to penicillin; Z88.8 Allergy status to other drugs, medicaments and biological substances; Z98.890 Other specified postprocedural states
CPT/HCPCS: 47563; 76000; 81025; 93005; J0690; J1100; J1885; J2250; J2405; J2710; J3010; J7120; Q9967; J2704

== ENCOUNTER 2017-06-30 15:26 | Emergency (ER) | payer BC ==
[2017-06-30 16:02] VITALS: BP 118/63
[2017-06-30] MEDS ORDERED: HYDROmorphone 0.5 MG/0.5 ML SYRINGE IVPUSH ONE (16:40)
[2017-06-30] MEDS ORDERED: Ondansetron 4 MG/2 ML SDV IVPUSH ONE (16:40)
[2017-06-30] MEDS ORDERED: Alum Hydrox/Mag Hydrox/Simeth 30 ML, Lidocaine 2% 15 ML PO ONE ×2 (16:40)
[2017-06-30] MEDS ORDERED: Sodium Chloride 0.9% 1,000 ML IV ONE (16:40)
[2017-06-30] MEDS ORDERED: Sodium Chloride 0.9% 10 ML Syringe FLUSH PRN (16:40)
--- NOTE | 2017-06-30 16:48 | EDM.PDOC ---
ED HPI GENERAL MEDICAL PROBLEM - General Chief Complaint: Abdominal Pain Stated Complaint: ABDOMINAL PAIN/NAUSEA POST SURGERY Time Seen by Provider: 06/30/17 16:25 Source of Information: Reports: Patient History Limitations: Reports: No Limitations - History of Present Illness INITIAL COMMENTS - FREE TEXT/NARRATIVE: Patient is a 46-year-old female who presents to the ED complaining of right upper quadrant and epigastric pain. Patient states approximately 10 days ago had her gallbladder removed by Dr. Shanks. Labs status post surgery indicated elevated lipase diagnosed with pancreatitis. She states today at noon she ate a sandwich consisting of ham and processed cheese along with bread and developed pain to the right upper quadrant/epigastric region 5 minutes later. Pain is described as a burning sensation that radiated to her back. She did become nauseated with no emesis. Pain currently is a 7 out of 10 and waxes and wanes in intensity. States current complaint is similar to the discomfort she was experiencing prior to surgery. She denies any fever/chills, vomiting, chest pain , shortness of breath, pain with urination, blood in her stool, and hematuria. She is on no narcotic medications at this time. She's takes metoprolol 50 mg every day for hypertension, ASA 81 mg, control pill, and also Prilosec 40 mg for acid reflux. She denies acid reflux symptoms. Treatments CARDIAC TECH: Reports: Other (see below) Other Treatments CARDIAC TECH: has prilosec, carafate, pepcid ac Upper Abdomen Pain Score (Numeric/FACES): 8 - Related Data Allergies Allergy/AdvReac Type Severity Reaction Status Date / Time Penicillins Allergy Rash Verified 06/19/17 16:05 levofloxacin [From Levaquin] AdvReac Joint Pain Verified 06/20/17 10:34 Home Meds: Home Meds Albuterol [Ventolin HFA] 2 puff INH BID PRN 10/25/13 [History] Metoprolol Tartrate 50 mg PO BEDTIME 10/25/13 [History] Omeprazole [Prilosec] 40 mg PO BID 10/25/13 [History] Aspirin [Ecotrin] 81 mg PO BEDTIME 04/24/14 [History] Linaclotide [Linzess] 290 mg PO DAILY 02/13/16 [History] Desogestrel-Ethinyl Estradiol [Amoseber 28 Day Tablet] 1 tab PO DAILY 06/19/17 [ History] Fluticasone/Salmeterol [Advair 100-50] 2 puff INH BID PRN 06/19/17 [History] Loratadine [Claritin] 10 mg PO DAILY PRN 06/19/17 [History] Nitrofurantoin Monohyd/M-Cryst [Macrobid 100 mg Capsule] 100 mg PO BID #10 capsule 06/30/17 [Rx] Past Medical History HEENT History: Reports: Allergic Rhinitis, Impaired Vision Other HEENT History: wears contacts Cardiovascular History: Reports: Other (See Below) Other Cardiovascular History: aortic stenosis/enlargement/regurgitation, AAA, bicuspid aortic valve Respiratory History: Reports: Asthma, Bronchitis, Recurrent, Other (See Below) Other Respiratory History: undiagnosed sleep apnea Gastrointestinal History: Reports: Celiac Disease, Cholelithiasis, Chronic Constipation, Gastritis, GERD, Other (See Below) Other Gastrointestinal History: bloating, duodenitis, throat and stomach biopsy Genitourinary History: Reports: None BULB GROWER History: Reports: Musculoskeletal History: Reports: None Neurological History: Reports: Migraines Psychiatric History: Reports: Anxiety, Panic Attack Endocrine/Metabolic History: Reports: Other (See Below) Other Endocrine/Metabolic History: states has hypoglycemia. Hematologic History: Reports: Anemia, Iron Deficiency, Other (See Below) Other Hematologic History: iron transfusions. Immunologic History: Reports: None Oncologic (Cancer) History: Reports: None Dermatologic History: Reports: None - Infectious Disease History Infectious Disease History: Reports: None - Past Surgical History HEENT Surgical History: Reports: Other (See Below) Cardiovascular Surgical History: Reports: Other (See Below) Respiratory Surgical History: Reports: None GI Surgical History: Reports: Cholecystectomy, Colonoscopy, EGD, Esophageal Dilatation Female Surgical History: Reports: None Neurological Surgical History: Reports: None Musculoskeletal Surgical History: Reports: None Oncologic Surgical History: Reports: None Dermatological Surgical History: Reports: None Social & Family History - Family History Family Medical History: Noncontributory - Tobacco Use Smoking Status *Q: Never Smoker Years of Tobacco use: 10 Used Tobacco, but Quit: Yes Month Tobacco Last Used: years ago Second Hand Smoke Exposure: No - Caffeine Use Caffeine Use: Reports: Coffee Other Caffeine Use: decaff - Alcohol Use Days Per Week of Alcohol Use: 0 Number of Drinks Per Day: 0 Total Drinks Per Week: 0 - Recreational Drug Use Recreational Drug Use: No Drug Use in Last 12 Months: No - Living Situation & Occupation Living situation: Reports: , with Family ED ROS GENERAL - Review of Systems Review Of Systems: ROS reveals no pertinent complaints other than HPI. ED EXAM, GI/ABD - Physical Exam Exam: See Below Exam Limited By: No Limitations General Appearance: Alert, WD/WN, Mild Distress Ears: Hearing Grossly Normal Nose: Normal Inspection Throat/Mouth: Normal Voice, No Airway Compromise Neck: Normal Inspection, Supple Respiratory/Chest: No Respiratory Distress, Lungs Clear, Normal Breath Sounds, No Accessory Muscle Use, Chest Non-Tender Cardiovascular: Normal Peripheral Pulses, Regular Rate, Rhythm GI/Abdominal Exam: Normal Bowel Sounds, Soft, No Organomegaly, No Distention, Tender, Other (Tenderness noted along the right upper quadrant and all along the upper gastric region and surgical incision sites. Surgical incision sites are well approximated with no erythema or drainage noted.) Neurological: Alert, Oriented, CN II-XII Intact, Normal Cognition, No Motor/ Sensory Deficits Psychiatric: Normal Affect, Normal Mood Skin Exam: Warm, Dry, Intact, Normal Color Course - Vital Signs Last Recorded V/S: Last Vital Signs Temp 97.8 F 06/30/17 15:59 Pulse 79 06/30/17 15:59 Resp 20 06/30/17 15:59 BP 118/63 06/30/17 15:59 Pulse Ox 96 06/30/17 15:59 - Orders/Labs/Meds Orders: Active Orders 24 hr Category Date Time Status EKG Documentation Completion [RC] STAT Care 06/30/17 16:40 Active Peripheral IV Care [RC] . DIRECTED Care 06/30/17 16:40 Active Abdomen 2V AP Flat Upright [CR] Stat Exams 06/30/17 16:40 Taken CULTURE URINE [RM] Stat Lab 06/30/17 17:07 Received Peripheral IV Insertion Adult [OM.PC] Stat Oth 06/30/17 16:40 Ordered Labs: Laboratory Tests 06/30/17 06/30/17 06/30/17 Range/Units 17:00 17:00 17:07 WBC 8.63 (3.98-10.04) K/mm3 RBC 5.16 (3.98-5.22) M/mm3 Hgb 15.1 (11.2-15.7) gm/L Hct 45.9 H (34.1-44.9) % MCV 89.0 (79.4-94.8) fl MCH 29.3 (25.6-32.2) pg MCHC 32.9 (32.2-35.5) g/dl RDW Std Deviation 42.6 (36.4-46.3) fL Plt Count 229 (182-369) K/mm3 MPV 11.0 (9.4-12.3) fl Neut % (Auto) 73.8 H (34.0-71.1) % Lymph % (Auto) 16.7 L (19.3-51.7) % [place] % (Auto) 8.6 (4.7-12.5) % Eos % (Auto) 0.6 L (0.7-5.8) Baso % (Auto) 0.2 (0.1-1.2) % Neut # (Auto) 6.37 H (1.56-6.13) K/mm3 Lymph # (Auto) 1.44 (1.18-3.74) K/mm3 [place] # (Auto) 0.74 H (0.24-0.36) K/mm3 Eos # (Auto) 0.05 (0.04-0.36) K/mm3 Baso # (Auto) 0.02 (0.01-0.08) K/mm3 Sodium 138 (136-145) mEq/L Potassium 3.5 (3.5-5.1) mEq/L Chloride 104 (98-107) mEq/L Carbon Dioxide 23 (21-32) mEq/L Anion Gap 14.5 (5-15) BUN 5 L (7-18) mg/dL Creatinine 0.8 (0.55-1.02) mg/dL Est Cr Clr Drug Dosing 72.69 mL/min Estimated GFR (MDRD) > 60 (>60) mL/min BUN/Creatinine Ratio 6.3 L (14-18) Glucose 99 (74-106) mg/dL Calcium 8.9 (8.5-10.1) mg/dL Total Bilirubin 0.8 (0.2-1.0) mg/dL AST 57 H (15-37) U/L ALT 172 H (14-59) U/L Alkaline Phosphatase 84 (46-116) U/L Total Protein 6.8 (6.4-8.2) g/dl Albumin 3.3 L (3.4-5.0) g/dl Globulin 3.5 gm/dL Albumin/Globulin Ratio 0.9 L (1-2) Lipase 127 (73-393) U/L Urine Color Yellow (Yellow) Urine Appearance Slt cloudy H (Clear) Urine pH 6.5 (5.0-8.0) Ur Specific [place] 1.015 (1.005-1.030) Urine Protein Negative (Negative) Urine Glucose (UA) Negative (Negative) Urine Ketones Negative (Negative) Urine Occult Blood 2+ H (Negative) Urine Nitrite Negative (Negative) Urine Bilirubin Negative (Negative) Urine Urobilinogen 0.2 (0.2-1.0) Ur Leukocyte Esterase 1+ H (Negative) Urine RBC 0-5 (0-5) /hpf Urine WBC 5-10 H (0-5) /hpf Ur Epithelial Cells 0-5 (0-5) /hpf Amorphous Sediment Few H (NOT SEEN) /hpf Urine Bacteria Few (FEW) /hpf Urine Mucus Few (FEW) /hpf Meds: Medications Discontinued Medications Generic Name Dose Route Start Last Admin Trade Name Freq PRN Reason Stop Dose Admin Al Hydroxide/Mg Hydroxide 30 0 ml 06/30/17 16:40 06/30/17 17:25 ml/ Lidocaine HCl 15 ml PO 06/30/17 16:41 45 ml ONETIME ONE Administration Hydromorphone HCl 0.5 mg 06/30/17 16:40 06/30/17 17:49 Dilaudid IVPUSH 06/30/17 16:41 0.5 mg ONETIME ONE Administration Sodium Chloride 1,000 mls @ 250 mls/hr 06/30/17 16:40 06/30/17 17:15 Normal Saline IV 06/30/17 20:39 250 mls/hr ONETIME ONE Administration Lorazepam 0.5 mg 06/30/17 17:34 06/30/17 17:45 Ativan IVPUSH 06/30/17 17:35 0.5 mg ONETIME ONE Administration Nitrofurantoin Macrocrystals 200 mg 06/30/17 19:31 06/30/17 19:49 Macrobid PO 06/30/17 19:32 200 mg ONETIME ONE Administration Ondansetron HCl 4 mg 06/30/17 16:40 06/30/17 17:23 Zofran IVPUSH 06/30/17 16:41 4 mg ONETIME ONE Administration Sodium Chloride 10 ml 06/30/17 16:40 06/30/17 17:23 Saline Flush FLUSH 10 ml ASDIRECTED PRN Administration Keep Vein Open - Re-Assessments/Exams Free Text/Narrative Re-Assessment/Exam: IV established with normal saline 250 mL per hour, GI cocktail, Dilaudid 0.5 mg IVP, and Zofran 4 mg IVP. Initial lab studies include CBC, chem 14, lipase, UA, 2 view x-ray of the abdomen, and EKG. Per nursing staff patient is very anxious about taking the GI cocktail. She is very anxious.. Patient was administered Ativan IVP. Labs reviewed: CBC did not reveal any concerning findings. Revealed Creatinine 0.8, Glucose 99, AST Mildly Elevated 57,A LT 172, ALK phosphate 84, and lipase 127. X-ray of the abdomen revealed a few air-fluid levels. No signs of obstruction at this time. Possible ileus. Reviewed with Dr. Ruiz. Suggested discharge on clear liquid fluids with close follow-up with general surgeon. UA did reveal slightly cloudy, occult blood 2+, 1+ leukocyte Estrace, urine wbc' s 5-10, few amorphous sediment. Urine culture obtained. This concerning for infection. Will treat with Macrobid. Reassessment, patient resting more comfortable he. Pain has subsided. She is ready be discharged home. Discharge instructions as documented. Departure - Departure Time of Disposition: 19:29 Disposition: Home, Self-Care 01 Condition: Good Clinical Impression: Status post cholecystectomy UTI (urinary tract infection) Qualifiers: Urinary tract infection type: site unspecified Hematuria presence: with hematuria Qualified Code(s): N39.0 - Urinary tract infection, site not specified Abdominal pain Qualifiers: Abdominal location: generalized Qualified Code(s): R10.84 - Generalized abdominal pain - Discharge Information Prescriptions: Nitrofurantoin Monohyd/M-Cryst [Macrobid 100 mg Capsule] 100 mg PO BID #10 capsule Instructions: Abdominal Pain, Adult, Urinary Tract Infection, Adult, Easy-to- Read, Urinary Tract Infection, Adult Referrals: Charles Shanks MD [Physician] - Forms: ED Department Discharge Additional Instructions: As discussed UA did reveal findings concerning for infection. Urine culture obtained. Will start you Macrobid 100 mg twice a day for 5 days. you will be notified if antibiotic changes required. In addition x-ray of the abdomen did show findings concerning for early ileus. Treatment at this point will be clear liquid diet for the next 24 hours thereafter advancing to a bland diet. Refrain from dairy foods. Continue to follow instructions by Dr. Shanks. Close follow- up with Dr. Shanks is required for this coming Monday or Monday. Call and make an appointment Monday. Take all your home medications as prescribed including Vicodin pain med. No driving this evening since receiving a sedative medication while in the ED. Return to the ED if you develop any new or worsening symptoms. - My Orders Last 24 Hours: My Active Orders 06/30/17 16:40 EKG Documentation Completion [RC] STAT Peripheral IV Care [RC] . DIRECTED Abdomen 2V AP Flat Upright [CR] Stat Peripheral IV Insertion Adult [OM.PC] Stat 06/30/17 17:07 CULTURE URINE [RM] Stat - Assessment/Plan Last 24 Hours: My Active Orders 06/30/17 16:40 EKG Documentation Completion [RC] STAT Peripheral IV Care [RC] . DIRECTED Abdomen 2V AP Flat Upright [CR] Stat Peripheral IV Insertion Adult [OM.PC] Stat 06/30/17 17:07 CULTURE URINE [RM] Stat
[2017-06-30] MEDS ORDERED: LORazepam 2 MG/ML SDV IVPUSH ONE (17:34)
[2017-06-30] MEDS ORDERED: Nitrofurantoin Monohydrate/Macrocrystalline 100 MG Cap PO ONE (19:31)
--- NOTE | 2017-07-01 15:38 | CR ---
Abdomen: Supine and upright views of the abdomen were obtained. Comparison: Prior abdominal x-ray of 02/07/16. Bowel gas pattern appears normal. Surgical clips are seen from previous cholecystectomy. No abnormal calcifications or soft tissue abnormality is seen. Air-fluid levels are seen within the colon on the upright view which can be seen normally. Impression: 1. Incidental findings. Nothing acute is appreciated on two-view abdominal x-ray. Diagnostic code #2
== END 2017-06-30 19:45 | disposition home or self-care (01) ==
LOC: JD.ED 15:26
DX: N39.0 Urinary tract infection, site not specified (principal); J45.909 Unspecified asthma, uncomplicated; Z90.49 Acquired absence of other specified parts of digestive tract; Z88.0 Allergy status to penicillin; Z88.1 Allergy status to other antibiotic agents; Z79.82 Long term (current) use of aspirin; Z87.891 Personal history of nicotine dependence
CPT/HCPCS: 36415; 74019; 80053; 81001; 83690; 85025; 87086; 93005; 96361; 96374; 96375; 99284; A9270; J1170; J2060; J2405; J7040; J7050